=== PATIENT | female | born 1960 ===

== ENCOUNTER 2018-09-19 15:48 | Outpatient (CLI) | payer OTHER ==
[~2018-09-19] VITALS: Ht 157.5 cm; Wt 61.2 kg
== END 2018-09-19 16:00 | disposition home or self-care (01) ==
LOC: OFIC 805 15:48
DX: H92.02 Otalgia, left ear (principal); H61.22 Impacted cerumen, left ear

== ENCOUNTER 2021-03-14 13:12 | Outpatient (CLI) | payer OTHER | END 2021-03-14 14:33 | disposition home or self-care (01) | LOC: OFIC 805 13:12 | PROVIDERS: ATTEND Otolaryngology Otology & Neurotology | DX: J30.89 Other allergic rhinitis (principal); R09.81 Nasal congestion ==

== ENCOUNTER 2022-03-13 11:49 | Emergency (ER) | payer OTHER ==
[~2022-03-13] VITALS: Ht 157.5 cm; Wt 62.6 kg
[2022-03-13] MEDS ORDERED: ZYRTEC10 M3 PO (12:00)
== END 2022-03-13 16:10 | disposition home or self-care (01) ==
LOC: ER 11:49
DX: U07.1 COVID-19 (principal); B34.9 Viral infection, unspecified; Z88.6 Allergy status to analgesic agent

== ENCOUNTER 2022-03-20 09:15 | Outpatient (CLI) | payer OTHER ==
[~2022-03-20 09:15] MED LIST: ZYRTEC10 M3 PO
== END 2022-03-20 10:15 | disposition home or self-care (01) ==
LOC: LAB 09:15
PROVIDERS: ATTEND General Practice
DX: U07.1 COVID-19 (principal)

== ENCOUNTER 2022-04-28 09:19 | Emergency (ER) | payer OTHER ==
[~2022-04-28] VITALS: Ht 157.5 cm; Wt 60.3 kg
== END 2022-04-28 12:25 | disposition home or self-care (01) ==
LOC: ER 09:19
DX: U07.1 COVID-19 (principal)